=== PATIENT | male | born 1990 | race African-American/Black ===

== ENCOUNTER 2020-03-02 04:38 | Emergency (ER) | payer BC, OTHER ==
[~2020-03-02] VITALS: Ht 170.2 cm; Wt 68.6 kg
[~2020-03-02 04:38] MED LIST: IBUP-1574 PO
[2020-03-02] MEDS ORDERED: CLIN-117 PO (04:49)
[2020-03-02] MEDS ORDERED: ketorolac trometh. 30mg/ml inj. IM ONE (04:50)
[2020-03-02] MEDS ORDERED: clindamycin 150mg capsule PO ONE (04:50)
[2020-03-02 04:58] VITALS: BP 128/76
== END 2020-03-02 04:59 | disposition home or self-care (01) ==
LOC: ER 04:39
DX: K04.7 Periapical abscess without sinus (principal); Z88.0 Allergy status to penicillin; Z79.899 Other long term (current) drug therapy
CPT/HCPCS: 96372; 99283; J1885

== ENCOUNTER 2020-12-14 18:05 | Emergency (ER) | payer OTHER ==
[~2020-12-14] VITALS: Ht 170.2 cm; Wt 70.5 kg
[2020-12-14 18:53] VITALS: BP 145/84
[2020-12-14] MEDS ORDERED: TETanus/Pertussis (Acell)/Diphther VAC/PF (Tdap-Adult) 0.5ml syringe IMVAC ONE (19:00)
[2020-12-14] MEDS ORDERED: SULF1TAB49 PO (19:25)
== END 2020-12-14 19:44 | disposition home or self-care (01) ==
LOC: ER 18:06
DX: L72.9 Follicular cyst of the skin and subcutaneous tissue, unspecified (principal); Z72.89 Other problems related to lifestyle; Z79.899 Other long term (current) drug therapy
CPT/HCPCS: 10060; 90471; 90715; 99283